=== PATIENT | female | born 1990 ===

== ENCOUNTER 2017-09-04 14:52 | Inpatient (IN) | payer MEDICAID, OTHER ==
--- NOTE | 2017-09-04 16:05 | ED PDOC ---
HPI: Psych/Substance Abuse Time Seen by Provider: 09/04/17 15:12 Chief Complaint (Nursing): Psychiatric Evaluation Chief Complaint (Provider): Psychiatric Evaluation History Per: Patient History/Exam Limitations: no limitations Onset/Duration Of Symptoms: Days Current Symptoms Are (Timing): Still Present Additional Complaint(s): 27 year old female with a past medical history of depression is brought into the emergency department by her mother for psychiatric evaluation. Supervisor Cytology reports that since this weekend (Sunday) the patient has spent most of the time in bed and has no motivation to eat or got to work. Patient states that she has been feeling depressed but states that she has had no new emotional or mental stressors. She also states that she was suppose to have an outpatient appointment today but was directed to come to the emergency department by her psychiatrist. Patient offers no physical complaint at this time. Of note: Patient takes Zyprexa 5 mg daily at bedtime Past Medical History Reviewed: Historical Data, Nursing Documentation, Vital Signs Vital Signs: Last Vital Signs Temp 98.9 F 09/04/17 15:14 Pulse 75 09/04/17 15:14 Resp 16 09/04/17 15:14 BP 97/65 L 09/04/17 15:14 Pulse Ox 100 09/04/17 15:14 - Medical History PMH: Depression - Surgical History Surgical History: No Surg Hx - Family History Family History: States: Unknown Family Hx - Living Arrangements Living Arrangements: With Family - Social History Current smoker - smoking cessation education provided: No Ex-Smoker (has not smoked in the last 12 months): No Alcohol: None Drugs: Denies - Home Medications Home Medications: Ambulatory Orders Medication Instructions Recorded Olanzapine [Zyprexa] 5 mg PO HS 09/04/17 - Allergies Allergies/Adverse Reactions: Allergies Allergy/AdvReac Type Severity Reaction Status Date / Time No Known Allergies Allergy Verified 09/04/17 15:14 Review of Systems ROS Statement: Except As Marked, All Systems Reviewed And Found Negative Psych: Positive for: Depression Physical Exam - Reviewed Nursing Documentation Reviewed: Yes Vital Signs Reviewed: Yes - Physical Exam Comments: GENERAL APPEARANCE: Patient is awake, alert, oriented x 3, in no acute distress. SKIN: Warm, dry; (-) cyanosis EYES: (-) conjunctival pallor, (-) scleral icterus, (-) nystagmus. ENMT: Mucous membranes moist. Airway patent: (-) stridor. NECK: Supple, FROM CHEST AND RESPIRATORY: (-) rales, (-) rhonchi, (-) wheezes; breath sounds equal. Speaking in full sentences, respirations even and nonlabored. ABDOMEN: Soft, (-) distention, (-) tenderness, (-) guarding. NEURO AND PSYCH: Mental status as above. Affect: flat. endodontics dentist: Intact. Pupils equal and reactive; EOMI; (-) facial asymmetry ; tongue and uvula midline. Gait steady. - Laboratory Results Result Diagrams: 09/06/17 07:10 09/04/17 18:48 Urine POC: Negative - ECG O2 Sat by Pulse Oximetry: 100 (RA) Pulse Ox Interpretation: Normal Medical Decision Making Medical Decision Makin Initial Impression 27 year old female presenting for psychiatric evaluation Initial Plan: * Crisis Evaluation * Reevaluation 1744 Per crisis evaluation, patient to be admitted for unspecified bipolar disorder per Dr Hill. CBC, CMP ordered. Preg test, Urine drug screen, and U/A ordered. Patient resting comfortably on re-evaluation with no physical complaints at this time. 0 Labs reviewed and unremarkable. Patient is medically stable for psychiatric admission. Arrangements made for admission. Documented by Lexii urena acting as a scribe for Valerie Khan PA-C. All medical record entries made by the Scribe were at my direction and personally dictated by me. I have reviewed the chart and agree that the record accurately reflects my personal performance of the history, physical exam, medical decision making, and the department course for this patient. I have also personally directed, reviewed, and agree with the discharge instructions and disposition. Disposition - Clinical Impression Clinical Impression: Bipolar disorder, unspecified - Patient ED Disposition Is Patient to be Admitted: Yes Counseled Patient/Family Regarding: Diagnosis - Disposition Disposition Time: 19:11 Condition: FAIR - Pt Status Changed To: Hospital Disposition Of: Inpatient - Admit Certification Admit to Inpatient:: After my assessment, the patient will require hospitalization for at least two midnights. This is because of the severity of symptoms shown, intensity of services needed, and/or the medical risk in this patient being treated as an outpatient. - POA Present On Arrival: None Results - Lab Results Lab Results: 09/04/17 09/04/17 09/04/17 18:48 18:48 18:00 WBC 7.0 RBC 4.97 Hgb 14.7 Hct 44.4 MCV 89.4 MCH 29.5 MCHC 33.0 RDW 13.8 Plt Count 217 MPV 9.1 Neut % (Auto) 57.5 Lymph % (Auto) 32.3 [place] % (Auto) 6.7 Eos % (Auto) 2.7 Baso % (Auto) 0.8 Neut # (Auto) 4.0 Lymph # (Auto) 2.3 [place] # (Auto) 0.5 Eos # (Auto) 0.2 Baso # (Auto) 0.1 Sodium 141 Potassium 3.8 Chloride 105 Carbon Dioxide 23 Anion Gap 17 BUN 12 Creatinine 0.7 Est GFR ( Amer) > 60 Est GFR (Non-Af Amer) > 60 Random Glucose 90 Calcium 8.6 Total Bilirubin 1.0 AST 23 ALT 39 Alkaline Phosphatase 52 Total Protein 6.7 Albumin 3.9 Globulin 2.8 Albumin/Globulin Ratio 1.4 Urine Color Yellow Urine Clarity Slighty-cloudy Urine pH 6.0 Ur Specific [place] 1.025 Urine Protein Negative Urine Glucose (UA) Neg Urine Ketones Negative Urine Blood Negative Urine Nitrate Negative Urine Bilirubin Negative Urine Urobilinogen 0.2-1.0 Ur Leukocyte Esterase Neg Urine RBC (Auto) 1 Urine Microscopic WBC 1 Ur Squamous Epith Cells 1 Urine Opiates Screen Urine Methadone Screen Ur Barbiturates Screen Ur Phencyclidine Scrn Ur Amphetamines Screen U Benzodiazepines Scrn U Oth Cocaine Metabols U Cannabinoids Screen 09/04/17 18:00 WBC RBC Hgb Hct MCV MCH MCHC RDW Plt Count MPV Neut % (Auto) Lymph % (Auto) [place] % (Auto) Eos % (Auto) Baso % (Auto) Neut # (Auto) Lymph # (Auto) [place] # (Auto) Eos # (Auto) Baso # (Auto) Sodium Potassium Chloride Carbon Dioxide Anion Gap BUN Creatinine Est GFR ( Amer) Est GFR (Non-Af Amer) Random Glucose Calcium Total Bilirubin AST ALT Alkaline Phosphatase Total Protein Albumin Globulin Albumin/Globulin Ratio Urine Color Urine Clarity Urine pH Ur Specific [place] Urine Protein Urine Glucose (UA) Urine Ketones Urine Blood Urine Nitrate Urine Bilirubin Urine Urobilinogen Ur Leukocyte Esterase Urine RBC (Auto) Urine Microscopic WBC Ur Squamous Epith Cells Urine Opiates Screen Negative Urine Methadone Screen Negative Ur Barbiturates Screen Negative Ur Phencyclidine Scrn Negative Ur Amphetamines Screen Negative U Benzodiazepines Scrn Negative U Oth Cocaine Metabols Negative U Cannabinoids Screen Negative
[2017-09-04 18:15] LABS: SQUAMOUS EPITHIAL 1 /hpf (0-5); URINE BILIRUBIN NEGATIVE (NEGATIVE); URINE BLOOD NEGATIVE (NEGATIVE); URINE CLARITY SLIGHTY-CLOUDY (Clear); URINE COLOR YELLOW (YELLOW); URINE GLUCOSE (UA) NEG (Normal); URINE LEUKOCYTE ESTERASE NEG Leu/uL (Negative); URINE PROTEIN NEGATIVE (NEGATIVE); URINE UROBILINOGEN 0.2-1.0 mg/dL (0.2-1.0)
[2017-09-04 18:31] LABS: BARBITURATES, UR NEGATIVE (NEGATIVE); BENZODIAZEPINES, UR NEGATIVE (NEGATIVE); OPIATES, UR NEGATIVE (NEGATIVE); PHENCYCLIDINE, UR NEGATIVE (NEGATIVE)
[2017-09-04 18:53] LABS: BASO # 0.1 K/uL (0.0-0.2); BASO % 0.8 % (0.0-2.0); EOS # 0.2 K/uL (0.0-0.7); EOS % 2.7 % (0.0-4.0); HEMOGLOBIN 14.7 g/dL (12.0-16.0); LYMPH # 2.3 K/uL (1.0-4.3); LYMPH % 32.3 % (20.0-40.0); MEAN CELL VOLUME 89.4 fl (81.0-99.0); MEAN CORPUSCULAR HEMOGLOBIN 29.5 pg (27.0-31.0); MEAN PLATELET VOLUME 9.1 fl (7.2-11.7); MONO # 0.5 K/uL (0.0-0.8); MONO % 6.7 % (0.0-10.0); NEUT % 57.5 % (50.0-75.0); NRBC % 0.1 % (0.0-0.0); RBC 4.97 Mil/uL (3.80-5.20); RED CELL DISTRIBUTION WIDTH 13.8 % (11.5-14.5)
[2017-09-04 19:04] LABS: ALB/GLOB RATIO 1.4 (1.0-2.1); ALBUMIN 3.9 g/dL (3.5-5.0); ALT/SGPT 39 U/L (9-52); AST/SGOT 23 U/L (14-36); BLOOD UREA NITROGEN 12 mg/dl (7-17); CALCIUM 8.6 mg/dL (8.4-10.2); GFR AFRICAN-AMERICAN > 60; GFR NON-AFRICAN AMERICAN > 60
--- NOTE | 2017-09-04 21:26 | PCM.BM ---
<Caitie Dye - Last Filed: 09/04/17 21:24> Treatment Plan Problems - Problems identified on initial assessmt Guarded Behavior Date Initiated: 09/04/17 Time Initiated: 20:20 Assessment reference: NA Status: Active Treatment assets and liabiliti Patient Assests: adapts well, cooperative, ADL independent, physically healthy Patient Liabilities: other (Quitting job) - Milieu Protocol Maintain good personal hygiene: daily Encourage regular showers, daily Remind patient to perform daily oral care, daily Assist patient to perform ADL's Maintain personal safety: every shift Educate patient to report safety concerns to staff, every shift Monitor environment for contraband/sharps Medication safety: Monitor for expected outcome, potential side effects: every shift, Assess barriers to learning: every shift, Assess readiness for medication education: every shift Family Contact Family involvement: Family/SO is involved <Hector Dey - Last Filed: 09/07/17 12:14> Family Contact Family involvement: Family/SO is involved Family contact: Patient agrees to contact, Family has been contacted by patient , Telephone contact initiated by staff Family contact name: Petra Yamile/Jennifer Dawson (sister/mother) [phone] Family contacted how many times per week?: 4 Family contact comment: Trailer Steerer spoke with pt's sister, Petra ([phone]), to gain collateral surrounding precursors to pt's hospitalization. Petra reported that pt told her mother two days prior to admission that she did not want to live anymore and continued to make passive suicidal statements so pt's mother brought pt to the hospital. Pt's sister reported that pt has been really apathetic about living and often will not leave her room for days. Pt's sister has also noticed that pt has begun to exhibit hoarding behaviors. Pt's sister reported that pt recently began seeing a therapist for 2-3 sessions, but did not know the therapists information. As per Petra pt has never been admitted psychiatrically, but has been in the ED on holds before. Pt can manipulate others by presenting fairly normal so she often avoids the treatment she needs. Pt's sister reported that pt has admitted to seeing and hearing hallucinations and often presents with bizarre and tangential speech with flat affect and tone. Pt's sister reported that pt smoked marijuana as a teenager and young adult, but has not smoked in years because the pt realized she did not like the way it made her feel. Pt's sister reported that the pt still binge drinks occasionally and came home heavily intoxicated a few weeks ago, but was fine the next day. Juvenal's sister reported that they have a cousin who is diagnosed with either Schizophrenia or Bipolar Disorder. Petra reported that pt and her had a very "rough" childhood due to her father's behavior and anger management. Pt's sister described that they are "all a bit damaged." Pt now has a strained relationship with her father and he often attempts to get her help, but becomes frustrated when she does not comply with treatment and often distances himself again. Petra reported that pt's mother has coddled the pt and prevented her from becoming independent. Petra reported that pt also has manipulative tendencies to gain people's attention, approval and gratitude. - Goals for Treatment Patient goals for treatment: Pt was unable to list any specific goals at this time, but was able to reality test and understand that her past speech and behavior was bizarre. Pt spoke with Dr. Hill about wanting to remove the sadness that she felt. Patient's family/SO goals for treatment: Pt's family is very concerned for the pt at this time and would like her to be placed on medications to help relieve her acute psychiatric symptoms so pt can function in society. Discharge/Continuing Care - Education Needs Education Needs: Family Medication, Family Diagnosis/Disease Process, Family Coping Skills, Family Aftercare Safety Plan, Patient Medication, Patient Diagnosis/Disease Process, Patient Coping Skills, Patient Aftercare Safety Plan - Discharge Discharge Criteria: Tolerates medication w/o severe side effects, Free of Suicidal thoughts, Free of paranoid thoughts, Free of agitation, Normal sleep pattern, Reduction of target symptoms Discharge to:: Home, With Family - Treatment Team Participation Patient/Family/SO Statement: 09/07/17 12:14 Pt was seen in team today. Pt presented as guarded and superficial. Pt reported that she does feel better, but had difficulty expressing specific ways that she feels better. Increases in Lexapro were discussed and pt denied current side effects. Pt reported that she did realize that she has been depressed and stated that she "lost herself." Pt admitted that she feels that she is in a slump and spoke about healthy coping skills to handle her depression. Discussed with Family/SO: Yes Was Patient/Family/SO present at Treatment Team Meeting: Yes <Daiana Hill - Last Filed: 09/10/17 11:51> - Diagnosis (1) Depression Status: Acute Interventions: psychotherapy, pharmacotherapy 09/10/17 11:51
[2017-09-04] MEDS ORDERED: Magnesium Hydroxide Susp 30 ml UD PO PRN (21:33)
[2017-09-04] MEDS ORDERED: DiphenhydrAMINE 50 mg/ml Inj IM PRN (21:33)
[2017-09-04] MEDS ORDERED: Alum-Mag Hydrox-Simethicone Susp (30 mL) PO PRN (21:33)
[2017-09-05] MEDS ORDERED: Risperidone M tab 0.5MG PO STA (11:41)
--- NOTE | 2017-09-05 13:45 | PCM.PSYCH ---
Initial Psychiatric Evaluation - Initial Psychiatric Evaluation Type of Admission: Voluntary Legal Status: Capacity Chief Complaint (in patient's own words): I SHOULD NOT BE HERE , MY MOTHER TRIED TO GET RID OF ME Patient's Reaction to Hospitalization: PT BROUGHT BY FAMILY FOR TREATMENT History of Present Illness and Precipitating Events: pt arely 27ys old female , no previous psychiatric hospitalization, unclear previous psychiatric history, as per family report has history of alcohol and cannabis use, was recently started on olanzapine 5mg qhs but non compliant with medications or follow up, pt also in therapy met therapist only three times and has not been compliant, on day of evaluation she missed her appointment and was noted by family for past few weeks to be isolative in her room, poor sleep and poor appetite, quit her job as she was paranoid towards her boss and co workers , pt also noted to be paranoid towards family members believing they want to get rid of her, blaming her parents for not feeling well, pt observed by family talking to self and pacing all night was brought for evaluation on the unit patient noted to be paranoid and guarded, stating there is no reason she should be here but mother should be hospitalized, pt internally preoccupied appears responding to internal; stimuli, thought blocking and disorganized thought process limited insight into illness and requesting to be discharged denied any current suicidal or homicidal ideation, denied command hallucinations Current Medications: Active Medications Generic Name Dose Route Start Last Admin Trade Name Freq PRN Reason Stop Dose Admin Acetaminophen 650 mg 09/04/17 21:33 Tylenol 325mg Tab PO Q4 PRN Pain, moderate (4-7) Al Hydrox/Mg Hydrox/Simethicone 30 ml 09/04/17 21:33 Maalox Plus 30 Ml PO Q4 PRN Dyspepsia Diphenhydramine HCl 50 mg 09/04/17 21:33 Benadryl IM Q6 PRN Extrapyramidal S/S Unable PO Diphenhydramine HCl 50 mg 09/04/17 21:33 Benadryl PO Q6 PRN Extrapyramidal Symptoms Haloperidol 5 mg 09/04/17 21:33 Haldol PO Q4 PRN Agitation Haloperidol Lactate 5 mg 09/04/17 21:33 Haldol IM Q4 PRN Agitation, Unable to Take PO Lorazepam 2 mg 09/04/17 21:33 Ativan IM Q4 PRN Anxiety/Agitation,Unable PO Lorazepam 2 mg 09/04/17 21:33 Ativan PO Q4 PRN Anxiety/Agitation Magnesium Hydroxide 30 ml 09/04/17 21:33 Milk Of Magnesia PO HS PRN Constipation Risperidone 0.5 mg 09/06/17 09:00 Risperdal M-Tab PO DAILY KALIA Risperidone 1 mg 09/05/17 22:00 Risperdal M-Tab PO HS KALIA Past Psychiatric History - Past Psychiatric History Explanation of prior treatment: no hx of previous hospitalization, recent out patient treatment with history of non compliance History of ETOH/Drug Use: hx of alcohol and cannabis use Pertinent Medical Hx (Current Medical&Sleep Prob, Allergies): Allergies Allergy/AdvReac Type Severity Reaction Status Date / Time No Known Allergies Allergy Verified 09/04/17 15:14 Olanzapine [Zyprexa] 5 mg PO HS 09/04/17 Mental Status Examination - Personal Presentation Personal Presentation: Looks stated age - Affect Affect: Constricted Additional comments: fearful, anxious - Motor Activity Motor Activity: Psychomotor Agitation - Reliability in Providing Information Reliability in Providing Information: Poor, due to alteration in thoughts, Poor , due to altered mood - Speech Speech: Disorganized, Tangential Additional comments: under productive - Mood Mood: Anxious - Formal Thought Process Formal Thought Process: Hallucinations, Paranoia, Circumstantial Additional comments: paranoid delusions and internally pre occupied - Obsessions/Compulsions Obsessions: No Compulsions: No - Cognitive Functions Orientation: Person, Place Sensorium: Alert Attention/Concentration: Easily distracted Judgement: Imparied, as evidence by: Poor judgement, Imparied, as evidence by: Lack of insight into illness - Risk Risk: Elopement, Diminished functioning - Strength & Assets Inventory Strength & Assets Inventory: Family support - Limitations Additional comments: poor compliance DSM 5 DX - DSM 5 DSM 5 Diagnosis: psychotic disorder rule out major depression with psychosis rule out bipolar disorder with psychosis rule out substance induced psychosis { synthetic cannabis } - Recommended/Plan of Treatment Treatment Recommendations and Plan of Treatment: start risperidone 0.5 mg daily and 1mg qhs , cogentin 0.5mg qhs obtain collateral information from family group and supportive therapy monitor patient for psychopharmacological effects and side effect profile
--- NOTE | 2017-09-05 14:25 | CP.PCM.CON ---
History of Present Illness - History of Present Illness History of Present Illness: Reason for Consult: per hospital protocol HPI: 27 year old female no past medical history admitted to psych after missing her appointment with her psychiatrist. States she has depression. No other complaints. HD stable, nAD. ROS: per HPI all other systems reviewed and negative PMSH: denies FH: depression SH: denies tobacco, etoh, icdu Past Patient History - Past Social History Alcohol: None Drugs: Denies - CARDIAC Hx Cardiac Disorders: No - PULMONARY Hx Respiratory Disorders: No - NEUROLOGICAL Hx Neurological Disorder: No - HEENT Hx HEENT Problems: No - RENAL Hx Chronic Kidney Disease: No - ENDOCRINE/METABOLIC Hx Endocrine Disorders: No - HEMATOLOGICAL/ONCOLOGICAL Hx Blood Disorders: No - INTEGUMENTARY Hx Dermatological Problems: No - MUSCULOSKELETAL/RHEUMATOLOGICAL Hx Musculoskeletal Disorders: No - GASTROINTESTINAL Hx Gastrointestinal Disorders: No - GENITOURINARY/GYNECOLOGICAL Hx Genitourinary Disorders: No - PSYCHIATRIC Hx Substance Use: No - SURGICAL HISTORY Hx Surgeries: Yes Other/Comment: breast augmentation. LASIK - ANESTHESIA Hx Anesthesia: Yes Meds Allergies/Adverse Reactions: Allergies Allergy/AdvReac Type Severity Reaction Status Date / Time No Known Allergies Allergy Verified 09/04/17 15:14 - Medications Medications: Current Medications Acetaminophen (Tylenol 325mg Tab) 650 mg PO Q4 PRN PRN Reason: Pain, moderate (4-7) Al Hydrox/Mg Hydrox/Simethicone (Maalox Plus 30 Ml) 30 ml PO Q4 PRN PRN Reason: Dyspepsia Benztropine Mesylate (Cogentin) 0.5 mg PO HS KALIA Diphenhydramine HCl (Benadryl) 50 mg IM Q6 PRN PRN Reason: Extrapyramidal S/S Unable PO Diphenhydramine HCl (Benadryl) 50 mg PO Q6 PRN PRN Reason: Extrapyramidal Symptoms Haloperidol (Haldol) 5 mg PO Q4 PRN PRN Reason: Agitation Haloperidol Lactate (Haldol) 5 mg IM Q4 PRN PRN Reason: Agitation, Unable to Take PO Lorazepam (Ativan) 2 mg IM Q4 PRN PRN Reason: Anxiety/Agitation,Unable PO Lorazepam (Ativan) 2 mg PO Q4 PRN PRN Reason: Anxiety/Agitation Magnesium Hydroxide (Milk Of Magnesia) 30 ml PO HS PRN PRN Reason: Constipation Risperidone (Risperdal M-Tab) 0.5 mg PO DAILY KALIA Risperidone (Risperdal M-Tab) 1 mg PO HS KALIA Physical Exam - Constitutional Appears: Non-toxic, No Acute Distress - Head Exam Head Exam: ATRAUMATIC, NORMOCEPHALIC - Eye Exam Eye Exam: EOMI, Normal appearance, PERRL - ENT Exam ENT Exam: Mucous Membranes Moist, Normal Oropharynx - Respiratory Exam Respiratory Exam: Clear to Auscultation Bilateral, NORMAL BREATHING PATTERN - Cardiovascular Exam Cardiovascular Exam: RRR, +S1, +S2 - GI/Abdominal Exam GI & Abdominal Exam: Normal Bowel Sounds, Soft. absent: Tenderness - Extremities Exam Extremities exam: Positive for: normal capillary refill, normal inspection - Back Exam Back exam: NORMAL INSPECTION. absent: CVA tenderness (L), CVA tenderness (R) - Neurological Exam Neurological exam: Alert, CN II-XII Intact, Normal Gait, Oriented x3, Reflexes Normal - Psychiatric Exam Psychiatric exam: Normal Affect, Normal Mood - Skin Skin Exam: Dry, Normal Color, Warm Results - Vital Signs Recent Vital Signs: Last Vital Signs Temp 98.2 F 09/05/17 09:00 Pulse 78 09/05/17 09:00 Resp 18 09/05/17 09:00 BP 121/72 09/05/17 09:00 Pulse Ox 100 09/04/17 19:55 - Labs Result Diagrams: 09/04/17 18:48 09/04/17 18:48 Labs: Laboratory Results - last 24 hr 09/04/17 09/04/17 09/04/17 18:00 18:00 18:48 WBC 7.0 RBC 4.97 Hgb 14.7 Hct 44.4 MCV 89.4 MCH 29.5 MCHC 33.0 RDW 13.8 Plt Count 217 MPV 9.1 Neut % (Auto) 57.5 Lymph % (Auto) 32.3 [place] % (Auto) 6.7 Eos % (Auto) 2.7 Baso % (Auto) 0.8 Neut # (Auto) 4.0 Lymph # (Auto) 2.3 [place] # (Auto) 0.5 Eos # (Auto) 0.2 Baso # (Auto) 0.1 Sodium Potassium Chloride Carbon Dioxide Anion Gap BUN Creatinine Est GFR ( Amer) Est GFR (Non-Af Amer) Random Glucose Calcium Total Bilirubin AST ALT Alkaline Phosphatase Total Protein Albumin Globulin Albumin/Globulin Ratio Urine Color Yellow Urine Clarity Slighty-cloudy Urine pH 6.0 Ur Specific [place] 1.025 Urine Protein Negative Urine Glucose (UA) Neg Urine Ketones Negative Urine Blood Negative Urine Nitrate Negative Urine Bilirubin Negative Urine Urobilinogen 0.2-1.0 Ur Leukocyte Esterase Neg Urine RBC (Auto) 1 Urine Microscopic WBC 1 Ur Squamous Epith Cells 1 Urine Opiates Screen Negative Urine Methadone Screen Negative Ur Barbiturates Screen Negative Ur Phencyclidine Scrn Negative Ur Amphetamines Screen Negative U Benzodiazepines Scrn Negative U Oth Cocaine Metabols Negative U Cannabinoids Screen Negative 09/04/17 18:48 WBC RBC Hgb Hct MCV MCH MCHC RDW Plt Count MPV Neut % (Auto) Lymph % (Auto) [place] % (Auto) Eos % (Auto) Baso % (Auto) Neut # (Auto) Lymph # (Auto) [place] # (Auto) Eos # (Auto) Baso # (Auto) Sodium 141 Potassium 3.8 Chloride 105 Carbon Dioxide 23 Anion Gap 17 BUN 12 Creatinine 0.7 Est GFR ( Amer) > 60 Est GFR (Non-Af Amer) > 60 Random Glucose 90 Calcium 8.6 Total Bilirubin 1.0 AST 23 ALT 39 Alkaline Phosphatase 52 Total Protein 6.7 Albumin 3.9 Globulin 2.8 Albumin/Globulin Ratio 1.4 Urine Color Urine Clarity Urine pH Ur Specific [place] Urine Protein Urine Glucose (UA) Urine Ketones Urine Blood Urine Nitrate Urine Bilirubin Urine Urobilinogen Ur Leukocyte Esterase Urine RBC (Auto) Urine Microscopic WBC Ur Squamous Epith Cells Urine Opiates Screen Urine Methadone Screen Ur Barbiturates Screen Ur Phencyclidine Scrn Ur Amphetamines Screen U Benzodiazepines Scrn U Oth Cocaine Metabols U Cannabinoids Screen Assessment & Plan - Assessment and Plan (Free Text) Plan: 27 year old female admitted to psych for depression. Depression management per psych
[2017-09-05] MEDS: Risperidone M tab 1 MG PO SCH (21:06)
[2017-09-05] MEDS ORDERED: Risperidone M tab 0.5MG PO SCH (22:00)
[2017-09-06 07:34] LABS: BASO % 0.6 % (0.0-2.0); EOS # 0.2 K/uL (0.0-0.7); EOS % 3.5 % (0.0-4.0); HEMOGLOBIN 14.5 g/dL (12.0-16.0); LYMPH # 1.6 K/uL (1.0-4.3); LYMPH % 23.8 % (20.0-40.0); MEAN CELL VOLUME 88.8 fl (81.0-99.0); MEAN CORPUSCULAR HGB CONC 33.8 g/dL (33.0-37.0); MEAN PLATELET VOLUME 9.3 fl (7.2-11.7); MONO # 0.5 K/uL (0.0-0.8); MONO % 7.1 % (0.0-10.0); NEUT # 4.4 K/uL (1.8-7.0); RBC 4.83 Mil/uL (3.80-5.20); RED CELL DISTRIBUTION WIDTH 13.8 % (11.5-14.5); WHITE BLOOD COUNT 6.7 K/uL (4.8-10.8)
[2017-09-06 07:58] LABS: T4 9.11 ug/dl (5.5-11.0)
[2017-09-06 08:12] LABS: T3 1.27 nmol/L (1.49-2.60)
[2017-09-06] MEDS: Risperidone M tab 0.5MG PO SCH (08:54)
--- NOTE | 2017-09-06 13:51 | PCM.PYCHPN ---
Psychiatric Progress Note - Psychiatric Progress Note Patient seen today, length of contact: pt evaluated discussed with team chart reviewed Patient Chief Complaint: I NEED HELP WITH THE SADNESS I GO THROUGH Problems Identified/Issues Discussed: PT ON EVALUATION LESS GUARDED WITH THE UNDER SIGNED SPEECH MORE PRODUCTIVE, pt reported has been anxious and depressed since childhood witnessing a lot of fighting between her parents , anxiety increased at age 13 after parents seperated , also recently had a break up of a 7 years relationship, guarded about the details and there were times she had to go to court, stating it is because the boy friend was a [employer] officer and supported by the system , continues to be paranoid , with episodes of thought blocking , also stated she does not feel comfortable with surroundings reported use of cannabis a month ago also reported passive suicidal ideation feeling she needs the pain to end but denied any active plan on the unit no reported side effects of medications Medical Problems: no hx of previous hospitalization, recent out patient treatment with history of non compliance DSM 5 Symptoms Update: major depression severe with psychotic features Medication Change: Yes (start lexapro) Medical Record Reviewed: Yes Mental Status Examination - Cognitive Function Orientation: Person, Place Attention: WNL Concentration: Poor Association: WNL Fund of Knowledge: WNL Decription of patient's judgement and insights: partial insight fair judgment - Mood Mood: Depressed, Anxious - Affect Affect: Constricted - Formal Thought Process Formal Thought Process: Paranoia, Circumstantial Psychotic Thoughts and Behaviors: pt presenting with paranoid delusions , denied command hallucinations - Suicidal Ideation Suicidal Ideation: No - Homicidal Ideation Homicidal Ideation: No Goal/Treatment Plan - Goal/Treatment Plan Need for Continued Stay: Severe depression anxiety, Discharge may exacerbated symptoms, Failed transitioning Progress Toward Problem(s) and Goals/Treatment Plan: increase risperidone 0.5 mg daily and 1mg qhs , cogentin 0.5mg qhs start lexapro 5mg qhs obtain collateral information from family and therapist group and supportive therapy monitor patient for psychopharmacological effects and side effect profile
[2017-09-06] MEDS: Risperidone M tab 1 MG PO SCH (21:02)
[2017-09-07] MEDS: Risperidone M tab 0.5MG PO SCH (09:27)
--- NOTE | 2017-09-07 13:45 | PCM.PYCHPN ---
Psychiatric Progress Note - Psychiatric Progress Note Patient seen today, length of contact: pt evaluated discussed with team chart reviewed Patient Chief Complaint: I was watching TV it made me happy Problems Identified/Issues Discussed: pt evaluated with treatment team, less guarded,speech more productive, thought process continues to be circumstantial with periods of concrete thinking and lack of touch with reality and paranoid thoughts towards ex boy friend pt able to verbalize the possible coping skill she may use when feeling down, discussed with pt the need to increase dose of lexapro, no reported side effects of current medications treatment plan discussed with mother upon pt consent motivational therapy provided in reference to cannabis use and possible effect on current mental status pt denied any current suicidal or homicidal ideation denied command hallucinations Medical Problems: no hx of previous hospitalization, recent out patient treatment with history of non compliance DSM 5 Symptoms Update: major depression severe with psychotic features rule out / bipolar disorder Medication Change: Yes (increase lexapro) Medical Record Reviewed: Yes Mental Status Examination - Cognitive Function Orientation: Person, Place Attention: WNL Concentration: Poor Association: WNL Fund of Knowledge: WNL Decription of patient's judgement and insights: partial insight fair judgment - Mood Mood: Depressed, Anxious - Affect Affect: Constricted - Formal Thought Process Formal Thought Process: Paranoia, Circumstantial Psychotic Thoughts and Behaviors: pt presenting with paranoid delusions , denied command hallucinations - Suicidal Ideation Suicidal Ideation: No - Homicidal Ideation Homicidal Ideation: No Goal/Treatment Plan - Goal/Treatment Plan Need for Continued Stay: Severe depression anxiety, Discharge may exacerbated symptoms, Failed transitioning Progress Toward Problem(s) and Goals/Treatment Plan: risperidone 0.5 mg daily and 1mg qhs , cogentin 0.5mg qhs increase lexapro 10mg qhs group and supportive therapy monitor patient for psychopharmacological effects and side effect profile
[2017-09-07] MEDS: Risperidone M tab 1 MG PO SCH (21:04)
[2017-09-08] MEDS: Risperidone M tab 0.5MG PO SCH (08:55)
--- NOTE | 2017-09-08 13:41 | PCM.PYCHPN ---
Psychiatric Progress Note - Psychiatric Progress Note Patient seen today, length of contact: pt evaluated discussed with team chart reviewed Patient Chief Complaint: I wish I could talk more about my feelings , i would feel better Problems Identified/Issues Discussed: pt evaluated , more opened with the undersigned, encouraged to discuss her current feelings, became tearful discussing that she continues to grieve the 7 years relation she had with her ex boy friend and reported she occasionally wonders if he misses her , pt understands the importance of continuing with therapy on discharge, presenting with a more clear thought process, reported continues to have interrupted sleep pt denied any current suicidal or homicidal ideation denied command hallucinations Medical Problems: no hx of previous hospitalization, recent out patient treatment with history of non compliance DSM 5 Symptoms Update: major depression with psychotic features Medication Change: No Medical Record Reviewed: Yes Mental Status Examination - Cognitive Function Orientation: Person, Place Attention: WNL Concentration: Poor Association: WNL Fund of Knowledge: WNL Decription of patient's judgement and insights: partial insight fair judgment - Mood Mood: Depressed, Anxious - Affect Affect: Constricted - Formal Thought Process Formal Thought Process: Paranoia, Circumstantial Psychotic Thoughts and Behaviors: pt presenting with paranoid delusions , denied command hallucinations - Suicidal Ideation Suicidal Ideation: No - Homicidal Ideation Homicidal Ideation: No Goal/Treatment Plan - Goal/Treatment Plan Need for Continued Stay: Severe depression anxiety, Discharge may exacerbated symptoms, Failed transitioning Progress Toward Problem(s) and Goals/Treatment Plan: risperidone 0.5 mg daily and 1mg qhs , cogentin 0.5mg qhs lexapro 10mg qhs group and supportive therapy monitor patient for psychopharmacological effects and side effect profile
[2017-09-08] MEDS: Risperidone M tab 1 MG PO SCH (21:05)
[2017-09-09] MEDS: Risperidone M tab 0.5MG PO SCH (08:46)
--- NOTE | 2017-09-09 13:58 | PCM.PYCHPN ---
Psychiatric Progress Note - Psychiatric Progress Note Patient seen today, length of contact: pt evaluated discussed with team chart reviewed Patient Chief Complaint: I was able to reflect on my feelings after our last conversation Problems Identified/Issues Discussed: pt evaluated , reported feeling better , mood calmer, related that to being able to open up about her feelings , psychoeducation provided in refernce to need to continue with medications and therapy on discharge, motivational therapy provided in reference to cannabis use and itss effect on current mental status pt denied any current suicidal or homicidal ideation denied command hallucinations Medical Problems: no hx of previous hospitalization, recent out patient treatment with history of non compliance DSM 5 Symptoms Update: major deprssion with psychotic features Medication Change: Yes (d/c andrew) Medical Record Reviewed: Yes Mental Status Examination - Cognitive Function Orientation: Person, Place Attention: WNL Concentration: WNL Association: WNL Fund of Knowledge: WN Decription of patient's judgement and insights: partial insight fair judgment - Mood Mood: Depressed, Anxious - Affect Affect: Constricted - Formal Thought Process Formal Thought Process: Paranoia, Circumstantial Psychotic Thoughts and Behaviors: pt presenting with paranoid delusions , denied command hallucinations - Suicidal Ideation Suicidal Ideation: No - Homicidal Ideation Homicidal Ideation: No Goal/Treatment Plan - Goal/Treatment Plan Need for Continued Stay: Severe depression anxiety, Discharge may exacerbated symptoms, Failed transitioning Progress Toward Problem(s) and Goals/Treatment Plan: risperidone 0.5 mg daily and 1mg qhs , lexapro 10mg qhs group and supportive therapy monitor patient for psychopharmacological effects and side effect profile Estimated Date of D/C: 09/13/17
[2017-09-09] MEDS: Risperidone M tab 1 MG PO SCH (21:09)
[2017-09-10] MEDS: Risperidone M tab 0.5MG PO SCH (08:47)
--- NOTE | 2017-09-10 11:59 | PCM.PYCHPN ---
Psychiatric Progress Note - Psychiatric Progress Note Patient seen today, length of contact: pt evaluated discussed with team chart reviewed Patient Chief Complaint: I feel like there is a knot on my chest and I need to let it out Problems Identified/Issues Discussed: pt evaluated , able to reflect on the reason for admission, tearful and anxious as she discussed how the break up with the boyfriend last year affected her mental status as she became more isolative and depressed, pt currently opened to receive therapy and continue medications on discharge pt denied any current suicidal or homicidal ideation denied command hallucinations , no reported side effects of medications Medical Problems: no hx of previous hospitalization, recent out patient treatment with history of non compliance DSM 5 Symptoms Update: major depression severe with psychotic features Medication Change: No Medical Record Reviewed: Yes Mental Status Examination - Cognitive Function Orientation: Person, Place Attention: WNL Concentration: WNL Association: WNL Fund of Knowledge: WN Decription of patient's judgement and insights: partial insight fair judgment - Mood Mood: Depressed, Anxious - Affect Affect: Constricted - Speech Speech: Soft - Formal Thought Process Formal Thought Process: Paranoia, Circumstantial Psychotic Thoughts and Behaviors: pt presenting with clearing off of paranoid delusions , denied command hallucinations - Suicidal Ideation Suicidal Ideation: No - Homicidal Ideation Homicidal Ideation: No Goal/Treatment Plan - Goal/Treatment Plan Need for Continued Stay: Severe depression anxiety, Discharge may exacerbated symptoms, Failed transitioning Progress Toward Problem(s) and Goals/Treatment Plan: risperidone 0.5 mg daily and 1mg qhs , lexapro 10mg qhs group and supportive therapy monitor patient for psychopharmacological effects and side effect profile Estimated Date of D/C: 09/13/17
[2017-09-10 20:14] VITALS: O2SAT 98
[2017-09-10] MEDS: Risperidone M tab 1 MG PO SCH (21:02)
[2017-09-11] MEDS: Risperidone M tab 0.5MG PO SCH (08:33)
[2017-09-11 09:10] VITALS: BP 118/75; PULSE 100; RESP 20; TEMP 97.9
--- NOTE | 2017-09-11 13:24 | PCM.PYCHDC ---
Mental Status Examination - Mental Status Examination Orientation: Person, Place, Situation Memory: Intact Mood: Neutral Affect: Broad Speech: Appropriate Attention: WNL Concentration: WNL Association: WNL Fund of Knowledge: WNL Formal Thought Process: No Impairment Description of patient's judgement and insight: partial insight fair judgment Psychotic Thoughts and Behaviors: pton discharge, denied psychotic symptoms, non elicited Suicidal Ideation: No Current Homicidal Ideation?: No Discharge Summary - Discharge Note Reason for Hospitalization: pt arely 27ys old female , no previous psychiatric hospitalization, unclear previous psychiatric history, as per family report has history of alcohol and cannabis use, was recently started on olanzapine 5mg qhs but non compliant with medications or follow up, pt also in therapy met therapist only three times and has not been compliant, on day of evaluation she missed her appointment and was noted by family for past few weeks to be isolative in her room, poor sleep and poor appetite, quit her job as she was paranoid towards her boss and co workers , pt also noted to be paranoid towards family members believing they want to get rid of her, blaming her parents for not feeling well, pt observed by family talking to self and pacing all night was brought for evaluation on the unit patient noted to be paranoid and guarded, stating there is no reason she should be here but mother should be hospitalized, pt internally preoccupied appears responding to internal; stimuli, thought blocking and disorganized thought process limited insight into illness and requesting to be discharged denied any current suicidal or homicidal ideation, denied command hallucinations Consultations:: List each consultation separately and include: 1. Reason for request. 2. Findings. 3. Follow-up Summary of Hospital Course include:: 1. Description of specific treatment plan utilized for patients during their course of treatmen. 2. Summarize the time- course for resolution of acute symptoms and/or regressed behaviors. 3. Describe issues identified and worked on during hospitalization. 4. Describe medication utilized. 5. Describe medical problems identified and treated. 6. Reassessment of suicide risk Summary of Hospital Course: pt on admission was depressed, guarded and paranoid, was started on risperidone , it was uptitrated to 1.5 mg daily pt was also started on lexapro, increased to 10mg daily CBT m motivational therapy provided in reference to cannabis use pt also received CBT group and supportive therapy pt gradually became less paranoid, participated in treatment, no reported side effects of medications on discharge mental status was stable denied suicidal or homicidal ideation denied perceptual disturbances - Diagnosis (1) Depression Current Visit: Yes Status: Acute - Final Diagnosis (DSM 5) Condition upon Discharge: FAIR DSM 5: major depression recurrent severe with psychotic features cannabis abuse Disposition: HOME/ ROUTINE Follow-up Treatment Plan: risperidone 0.5 mg daily and 1mg qhs , lexapro 10mg qhs group and supportive therapy monitor patient for psychopharmacological effects and side effect profile Prescriptions/Medication Reconciliation: Escitalopram [Lexapro] 10 mg PO HS 30 Days #30 tab risperiDONE [RisperDAL Tab] 0.5 mg PO DAILY 30 Days #30 tab risperiDONE [RisperDAL Tab] 1 mg PO HS 30 Days #30 tab - Antipsychotic Medications Pt discharged on 2 or more routine antipsychotic medications: No
== END 2017-09-11 14:32 | disposition home or self-care (01) | DRG 430 ==
LOC: H.ER 14:52 → H.ERHOLD 19:11 → H.PSYCH 20:20
PROVIDERS: ADMIT Psychiatry & Neurology Psychiatry; ATTEND Psychiatry & Neurology Psychiatry
PROC: GZHZZZZ Group Psychotherapy (ICD-10-PCS; principal; 2017-09-04)
PROC: HZ52ZZZ Individual Psychotherapy for Substance Abuse Treatment, Cognitive-Behavioral (ICD-10-PCS; 2017-09-04)
PROC: HZ59ZZZ Individual Psychotherapy for Substance Abuse Treatment, Supportive (ICD-10-PCS; 2017-09-04)
PROC: HZ56ZZZ Individual Psychotherapy for Substance Abuse Treatment, Psychoeducation (ICD-10-PCS; 2017-09-04)
PROC: HZ57ZZZ Individual Psychotherapy for Substance Abuse Treatment, Motivational Enhancement (ICD-10-PCS; 2017-09-04)
DX: F33.3 Major depressive disorder, recurrent, severe with psychotic symptoms (principal); F12.10 Cannabis abuse, uncomplicated; Z91.14 Patient's other noncompliance with medication regimen; Z91.19 Patient's noncompliance with other medical treatment and regimen